=== PATIENT | male | born 1940 ===

== ENCOUNTER 2018-02-07 01:52 | Day surgery (SDC) | payer MEDICARE ==
[~2018-02-07] VITALS: Ht 177.8 cm; Wt 89.8 kg
[~2018-02-07 01:52] MED LIST: ASPI-1471 PO; ATOR10TA24 PO; CHOL200038 PO; CLOP75TA PO; MULT-820 PO; PLAN450T3 PO; UBID100C48 PO
[2018-02-07] MEDS ORDERED: PROPOFOL EMUL(*) 10MG/ML 20 ML 20 ML ONE (10:45)
[2018-02-07] MEDS: LIDOCAINE/SOD BICARB 8.4% SYR ID ONE ×2 (10:49→11:25)
[2018-02-07] MEDS ORDERED: NORMOSOL R SOLN(*) 1000 ML BAG 1,000 ML IV PRN (11:25)
[2018-02-07 11:39] VITALS: BP 122/72
[2018-02-07 12:33] VITALS: BP 88/53
[2018-02-07 12:45] VITALS: BP 95/62
[2018-02-07 13:10] VITALS: BP 100/67
[2018-02-07 13:26] VITALS: BP 100/79
[2018-02-07 13:28] VITALS: BP 120/79
== END 2018-02-07 14:00 | disposition home or self-care (01) ==
LOC: OR 01:52
PROVIDERS: ATTEND Family Medicine
DX: Z12.11 Encounter for screening for malignant neoplasm of colon (principal)
CPT/HCPCS: 00812; G0121; J2704

== ENCOUNTER → 2018-02-23 | Outpatient (CLI) | payer MEDICARE | LOC: RESP 20:52 | PROVIDERS: ATTEND Family Medicine | DX: Z02.9 Encounter for administrative examinations, unspecified (principal) ==

== ENCOUNTER 2018-07-22 05:35 | Emergency (ER) | payer MEDICARE ==
--- NOTE | 2018-07-22 05:49 | ER Report ---
History and Physical Time Seen By MD: 05:49 Hx. of Stated Complaint: patients states that the patient got put to go to the bathroom and then passed out; states that she found him and had to wake him up and that he was a ashy castillo color; patient states that he still feels light headed, feverish. ([facility]) HPI/ROS CHIEF COMPLAINT: Syncope HISTORY OF PRESENT ILLNESS: This is a 77-year-old male. He passed out this morning at home. He remembers getting up to get a drink and going to the bathroom and the next thing he remembers is his trying to wake him up. His said that she heard a crash and went to check on her . He was staring straight ahead and not initially responsive. After a few moments he started responding. No seizure-like activity noted. He tried to get up but was dizzy and ended up not able to get up. Eventually he was able to get up and the came to the hospital. He has been dizzy for the last few days. They just returned from staying in [place] for several months and her back in [facility]. He denies any pain at this time. He specifically denies any chest pain or palpitations. He is not short of breath. He has not been ill recently and denies any fevers, sore throat, runny nose, cough. He denies any headache or vision changes right now. He still is dizzy feeling lightheaded. This does worsen with position change such as sitting up or standing. He denies any abdominal pain or nausea or vomiting. He has been eating and drinking normally the last few days. No changes in medications and he doesn't take any blood pressure medicines. His blood pressure and pulse always run a little bit low but he notes that the blood pressure and pulse now her little lower than what he usually runs. He always has a little bit of low back pain and that is unchanged. He denies any neck pain or back pain at this time and no pain in the extremities. He does have a little bit of a muscle cramp in the lateral calf on the right side. He gets these a lot and this is not unusual for him. Denies any difficulties with urination. He always suffers from a little constipation as he is now but not different than normal for him. He has had a history of a stroke in the past with some weakness in the left arm that lasted for about a day and then went away. No residual symptoms of this. He has no weakness at this time. He has not had any trouble swallowing or trouble with speech. He has no weakness in the face arms or legs and no sensory disturbances at this time. REVIEW OF SYSTEMS: As above. (JAREN ALCALA MD) Allergies: Coded Allergies: No Known Drug Allergies (Unverified , 02/01/18) Home Meds Reported Medications Atorvastatin Calcium (LIPITOR) 10 Mg Tablet, 1 TAB PO QDAY, TAB 02/01/18 Clopidogrel Bisulfate (CLOPIDOGREL) 75 Mg Tablet, 1 TAB PO QDAY, TAB 02/01/18 Ubidecarenone (COQ-10) 100 Mg Capsule, 100 MG PO, CAPSULE 02/01/18 Cholecalciferol (Vitamin D3) (VITAMIN D3) 2,000 Unit Tablet, 2000 UNIT PO 02/01/18 Plant Stanol Yolanda (CHOLEST OFF) 450 Mg Tablet, 450 MG PO 02/01/18 Aspirin (Aspir 81) 81 Mg Tablet.dr, 81 MG PO 1 for 1 Day 09/11/06 Reviewed Nurses Notes: Yes (JAREN ALCALA MD) Hx Smoking: No Smoking Status: Never Smoker Exposure to Second Hand Smoke?: Yes (MOM WAS A SMOKER) Hx Substance Use Disorder: No Hx Alcohol Use: Yes (JAREN ALCALA MD) Constitutional Vital Sign - Last 24 Hours 07/22/18 07/22/18 07/22/18 07/22/18 05:39 05:40 06:00 06:05 Temp 97.3 Pulse 50 47 Resp 17 21 B/P (MAP) 100/63 (75) 100/63 98/71 (80) Pulse Ox 90 93 O2 Delivery Room Air Nasal Cannula O2 Flow Rate 2 07/22/18 07/22/18 07/22/18 07/22/18 06:05 06:10 06:30 06:57 Pulse 48 55 Resp 12 13 B/P (MAP) 95/62 (73) Pulse Ox 94 99 O2 Flow Rate 2.0 07/22/18 07/22/18 07/22/18 07/22/18 07:02 07:03 07:05 07:09 Pulse 49 54 Resp 24 16 B/P (MAP) 112/70 (84) 115/79 (91) 111/66 (81) 112/70 (84) 115/79 (91) Pulse Ox 97 95 O2 Delivery Nasal Cannula O2 Flow Rate 2 07/22/18 07/22/18 07/22/18 07/22/18 07:30 07:32 08:00 08:02 Pulse 48 50 Resp 17 15 B/P (MAP) 117/71 (86) 118/73 (88) Pulse Ox 97 96 (JHON JAIN MD) Physical Exam General Appearance: The patient is alert. No acute distress. Non-toxic in appearance. Eyes: Pupils are equal, round. Reactive to light. No pallor, injection or icterus. Extraocular movements are intact. No nystagmus. ENT: Mucous membranes are moist. Normal oral mucosa. Posterior oropharynx is normal. Neck: Supple and non tender. No lymphadenopathy. Respiratory: Lungs are clear to auscultation. There are no retractions or accessory muscle use. Cardiovascular: Bradycardia but with a regular rhythm. No murmurs, gallops or rubs. Normal capillary refill. Trace edema in the ankles bilaterally. Gastrointestinal: Abdomen is soft and non tender. Nondistended. Normal active bowel sounds. No costovertebral angle tenderness with percussion. Neurological: Alert and oriented x3. Cranial nerves show I exam as noted above. Tongue is midline, symmetric palate elevation. No facial droop. Normal facial sensation. He has normal sensation and muscle strength throughout upper and lower extremities. He does get a little dizzy when he sits up for listening to his breathing. Skin: Warm and dry. No rashes. Musculoskeletal: Extremities are nontender other than the area with the muscle cramping in the right lower calf. Full range of motion. No tenderness in palpation of the cervical, thoracic and lumbar spine. DIFFERENTIAL DIAGNOSIS: After history and physical exam, differential diagnosis was considered for syncope including but not limited to vasovagal syncope, cardiogenic syncope, neurologic problems such as seizure or stroke, arrhythmia, metabolic or electrolyte abnormality, dehydration, and blood loss. ([facility]) Medical Decision Making Data Points Result Diagram: 07/22/18 0545 07/22/18 0545 Laboratory Hematology Test 07/22/18 05:45 07/22/18 06:26 07/22/18 09:14 Red Blood Count 4.70 M/uL (4.00-5.60) Mean Corpuscular Volume 92.6 fL (80.0-96.0) Mean Corpuscular Hemoglobin 31.6 pg (26.0-33.0) Mean Corpuscular Hemoglobin Concent 34.1 g/dL (32.0-36.0) Red Cell Distribution Width 13.3 % (11.5-14.5) Mean Platelet Volume 8.5 fL (7.2-11.1) Neutrophils (%) (Auto) 57.8 % (39.4-72.5) Lymphocytes (%) (Auto) 30.6 % (17.6-49.6) Monocytes (%) (Auto) 8.6 % (4.1-12.4) Eosinophils (%) (Auto) 2.4 % (0.4-6.7) Basophils (%) (Auto) 0.6 % (0.3-1.4) Nucleated RBC Relative Count (auto) 0.1 /100WBC Neutrophils # (Auto) 4.1 K/uL (2.0-7.4) Lymphocytes # (Auto) 2.1 K/uL (1.3-3.6) Monocytes # (Auto) 0.6 K/uL (0.3-1.0) Eosinophils # (Auto) 0.2 K/uL (0.0-0.5) Basophils # (Auto) 0.0 K/uL (0.0-0.1) Nucleated RBC Absolute Count (auto) 0.00 K/uL Sodium Level 138 mmol/L (137-145) Potassium Level 4.0 mmol/L (3.5-5.0) Chloride Level 108 mmol/L (98-107) Carbon Dioxide Level 23 mmol/L (22-30) Blood Urea Nitrogen 24 mg/dl (9-21) Creatinine 1.10 mg/dl (0.66-1.25) Glomerular Filtration Rate Calc > 60.0 Random Glucose 131 mg/dl (75-110) Calcium Level 8.7 mg/dl (8.4-10.2) Magnesium Level 2.1 mg/dl (1.7-2.2) Total Bilirubin 0.9 mg/dl (0.2-1.3) Aspartate Amino Transf (AST/SGOT) 36 U/L (0-35) Alanine Aminotransferase (ALT/SGPT) 49 U/L (0-56) Alkaline Phosphatase 67 U/L (0-126) Total Protein 6.7 g/dl (6.3-8.2) Albumin 3.8 g/dl (3.5-5.0) Urine Color Yellow Urine Clarity Slightly-cloudy Urine pH 5.0 pH (4.8-9.5) Urine Specific [place] 1.024 Urine Protein 30 mg/dL (NEGATIVE) Urine Glucose (UA) Negative mg/dL (NEGATIVE) Urine Ketones Negative mg/dL (NEGATIVE) Urine Blood Negative (NEGATIVE) Urine Nitrite Negative (NEGATIVE) Urine Bilirubin Negative (NEGATIVE) Urine Urobilinogen 2.0 mg/dL (0.2-1.9) Urine Leukocyte Esterase Negative (NEGATIVE) Urine RBC None /HPF (0-2/HPF) Urine WBC 2 /HPF (0-5/HPF) Urine Squamous Epithelial Cells None /LPF (</=FEW) Urine Bacteria Negative /HPF (NONE-FEW) Urine Hyaline Casts Many /LPF (NONE-FEW) Urine Mucus Few /HPF (NONE-FEW) Troponin I < 0.012 ng/ml Chemistry Test 07/22/18 05:45 07/22/18 06:26 07/22/18 09:14 White Blood Count 7.0 k/uL (4.5-11.0) Red Blood Count 4.70 M/uL (4.00-5.60) Hemoglobin 14.8 g/dL (14.0-18.0) Hematocrit 43.5 % (42.0-52.0) Mean Corpuscular Volume 92.6 fL (80.0-96.0) Mean Corpuscular Hemoglobin 31.6 pg (26.0-33.0) Mean Corpuscular Hemoglobin Concent 34.1 g/dL (32.0-36.0) Red Cell Distribution Width 13.3 % (11.5-14.5) Platelet Count 201 K/uL (150-450) Mean Platelet Volume 8.5 fL (7.2-11.1) Neutrophils (%) (Auto) 57.8 % (39.4-72.5) Lymphocytes (%) (Auto) 30.6 % (17.6-49.6) Monocytes (%) (Auto) 8.6 % (4.1-12.4) Eosinophils (%) (Auto) 2.4 % (0.4-6.7) Basophils (%) (Auto) 0.6 % (0.3-1.4) Nucleated RBC Relative Count (auto) 0.1 /100WBC Neutrophils # (Auto) 4.1 K/uL (2.0-7.4) Lymphocytes # (Auto) 2.1 K/uL (1.3-3.6) Monocytes # (Auto) 0.6 K/uL (0.3-1.0) Eosinophils # (Auto) 0.2 K/uL (0.0-0.5) Basophils # (Auto) 0.0 K/uL (0.0-0.1) Nucleated RBC Absolute Count (auto) 0.00 K/uL Glomerular Filtration Rate Calc > 60.0 Calcium Level 8.7 mg/dl (8.4-10.2) Magnesium Level 2.1 mg/dl (1.7-2.2) Total Bilirubin 0.9 mg/dl (0.2-1.3) Aspartate Amino Transf (AST/SGOT) 36 U/L (0-35) Alanine Aminotransferase (ALT/SGPT) 49 U/L (0-56) Alkaline Phosphatase 67 U/L (0-126) Total Protein 6.7 g/dl (6.3-8.2) Albumin 3.8 g/dl (3.5-5.0) Urine Color Yellow Urine Clarity Slightly-cloudy Urine pH 5.0 pH (4.8-9.5) Urine Specific [place]ard 1.024 Urine Protein 30 mg/dL (NEGATIVE) Urine Glucose (UA) Negative mg/dL (NEGATIVE) Urine Ketones Negative mg/dL (NEGATIVE) Urine Blood Negative (NEGATIVE) Urine Nitrite Negative (NEGATIVE) Urine Bilirubin Negative (NEGATIVE) Urine Urobilinogen 2.0 mg/dL (0.2-1.9) Urine Leukocyte Esterase Negative (NEGATIVE) Urine RBC None /HPF (0-2/HPF) Urine WBC 2 /HPF (0-5/HPF) Urine Squamous Epithelial Cells None /LPF (</=FEW) Urine Bacteria Negative /HPF (NONE-FEW) Urine Hyaline Casts Many /LPF (NONE-FEW) Urine Mucus Few /HPF (NONE-FEW) Troponin I < 0.012 ng/ml Urinalysis Test 07/22/18 06:26 Urine Color Yellow Urine Clarity Slightly-cloudy Urine pH 5.0 pH (4.8-9.5) Urine Specific [place] 1.024 Urine Protein 30 mg/dL (NEGATIVE) Urine Glucose (UA) Negative mg/dL (NEGATIVE) Urine Ketones Negative mg/dL (NEGATIVE) Urine Blood Negative (NEGATIVE) Urine Nitrite Negative (NEGATIVE) Urine Bilirubin Negative (NEGATIVE) Urine Urobilinogen 2.0 mg/dL (0.2-1.9) Urine Leukocyte Esterase Negative (NEGATIVE) Urine RBC None /HPF (0-2/HPF) Urine WBC 2 /HPF (0-5/HPF) Urine Squamous Epithelial Cells None /LPF (</=FEW) Urine Bacteria Negative /HPF (NONE-FEW) Urine Hyaline Casts Many /LPF (NONE-FEW) Urine Mucus Few /HPF (NONE-FEW) (JHON JAIN MD) EKG/Imaging EKG Interpretation 12 lead EKG: Rhythm: Sinus bradycardia with first-degree AV block, rate 48 [place]: Left axis deviation QRS: Narrow QRS complex, normal in appearance ST segments: No ST elevation, nonspecific flattening of the T waves (JAREN ALCALA MD) Imaging FACILITY: [facility] [place] PATIENT NAME: Nick Grigsby : 1940 MR: [id number] V: [id number] EXAM DATE: ORDERING PHYSICIAN: JAREN ALCALA TECHNOLOGIST: Location: [facility] [place] Patient: Nick Grigsby : 1940 Visit/Account:[id number] Date of Sevice: 07/22/[address] scan without contrast HISTORY: Syncope COMPARISONS: None TECHNIQUE: Non-contrast head CT was performed with sagittal and coronal reformations. One of the following dose optimization techniques was utilized in the performance of this exam: automated exposure control; adjustment of the mA and/or kV according to patient size; or use of iterative reconstruction technique. Specific details can be referenced in the facility's radiology CT exam operational policy. FINDINGS: There is no intracranial hemorrhage, hydrocephalus or midline shift. The basal cisterns, singh-white differentiation, and convexity sulci are maintained. Cataract postsurgical change noted. Minimal patchy white matter hypoattenuation. Trace left mastoid fluid. Mild left maxillary sinus mucosal thickening. Small right maxillary sinus mucous retention cyst. No acute osseous abnormality. IMPRESSION: No acute intracranial abnormality. Minimal chronic small vessel ischemic change. Report Dictated By: Mike Jefferson MD at 07/22/2018 6:47 AM Report E-Signed By: Mike Jefferson MD at 07/22/2018 6:53 AM WSN:[id number] (JHON JAIN MD) ED Course/Re-evaluation Clinical Indication for ER IV: IV Access (JAREN ALCALA MD) ED Course 07/22/2018 7:06:53 am accepted care of patient at this time. Awaiting results of CT of the head; we will repeat troponin at the 4 hour window. Patient with symptomatic bradycardia consider discussion with cardiology prior to disposition. 07/22/2018 9:53:20 am workup and troponin are completely negative. Patient responded extremely well to IV fluids with normal heart rate now and blood pressure. I'll likely patient's lightheadedness secondary to dehydration that was brought on by caffeine consumption as well as going from lower altitude to high altitude. Patient will follow up with primary care provider. Decision to Disposition Date: Jul 22, 2018 Decision to Disposition Time: 09:53 (JHON JAIN MD) Depart Departure Latest Vital Signs Vital Signs Date Time Temp Pulse Resp B/P (MAP) Pulse Ox O2 Delivery O2 Flow Rate FiO2 07/22/18 08:02 50 15 96 07/22/18 08:00 118/73 (88) 07/22/18 07:09 Nasal Cannula 2 07/22/18 05:40 97.3 (JHON JAIN MD) Impression: Primary Impression: Lightheadedness Additional Impression: Dehydration Condition: Improved Disposition: HOME OR SELF-CARE Referrals: JULIANA LOGAN MD (PCP) 2 Weeks Routine health maintenance and follow-up with lightheadedness Patient Instructions: Dehydration (ED), Lightheadedness (ED) Problem Qualifiers JAREN ALCALA MD Jul 22, 2018 05:49 JHON JAIN MD Jul 22, 2018 07:07
[2018-07-22] MEDS ORDERED: NS(*) 0.9% 1000 ML BAG 1,000 ML IV ONE ×2 (06:09→07:25)
[2018-07-22 06:16] LABS: PLATELET COUNT, AUTOMATED 201 K/uL (150-450)
--- NOTE | 2018-07-22 06:25 | EKG ---
[place] [facility] [place] NAME: LUCERO GAINES : [id number] MR: [id number]: [id number] EXAM DATE: ORDERING PHYSICIAN: JAREN ALCALA TECHNOLOGIST: ROXANN Test Reason : SYNCOPE Blood Pressure : / mmHG Vent. Rate : 048 BPM Atrial Rate : 048 BPM P-R Int : 222 ms QRS Dur : 098 ms QT Int : 506 ms P-R-T Axes : 037 -34 015 degrees QTc Int : 452 ms Marked sinus bradycardia with 1st degree AV block Left axis deviation Abnormal ECG No previous ECGs available Confirmed by Mason Breaux ([id number]) on 07/22/2018 7:35:18 AM Referred By: Confirmed By:Mason Pineda
--- NOTE | 2018-07-22 06:56 | RADIOLOGY IMAGING REPORT ---
FACILITY: [facility] [place] PATIENT NAME: Nick Grigsby : 1940 MR: [id number] V: [id number] EXAM DATE: ORDERING PHYSICIAN: JAREN ALCALA TECHNOLOGIST: Location: [facility] Patient: Nick Grigsby : 1940 Visit/Account:[id number] Date of Sevice: 07/22/[address] scan without contrast HISTORY: Syncope COMPARISONS: None TECHNIQUE: Non-contrast head CT was performed with sagittal and coronal reformations. One of the following dose optimization techniques was utilized in the performance of this exam: autom ated exposure control; adjustment of the mA and/or kV according to patient size; or use of iterative reconstruction technique. Specific details can be referenced in the facility's radiology CT exam ope rational policy. FINDINGS: There is no intracranial hemorrhage, hydrocephalus or midline shift. The basal cisterns, singh-white differentiation, and convexity sulci are maintained. Cataract postsurgical change noted. Minimal patc hy white matter hypoattenuation. Trace left mastoid fluid. Mild left maxillary sinus mucosal thickening. Small right maxillary sinus m ucous retention cyst. No acute osseous abnormality. IMPRESSION: No acute intracranial abnormality. Minimal chronic small vessel ischemic change. Report Dictated By: Mike Jefferson MD at 07/22/2018 6:47 AM Report E-Signed By: Mike Jefferson MD at 07/22/2018 6:53 AM WSN:[id number]
--- NOTE | 2018-07-22 06:57 | RADIOLOGY IMAGING REPORT ---
FACILITY: [facility] PATIENT NAME: Nick Grigsby : 1940 MR: [id number] V: [id number] EXAM DATE: ORDERING PHYSICIAN: JAREN ALCALA TECHNOLOGIST: Location: [facility] Patient: Nick Grigsby : 1940 Visit/Account:[id number] Date of Sevice: 07/22/2018 EXAMINATION: Chest radiograph HISTORY: Syncope, dizziness COMPARISON: None. FINDINGS: Frontal view obtained. Lines/tubes: None. Cardiomediastinal silhouette: Normal. Lungs/pleura: Normal. Bony structures/chest wall: No significant abnormality. IMPRESSION: Normal chest radiograph. Report Dictated By: Mike Jefferson MD at 07/22/2018 6:53 AM Report E-Signed By: Mike Jefferson MD at 07/22/2018 6:54 AM WSN:[id number]
[2018-07-22 10:00] VITALS: BP 117/73
== END 2018-07-22 10:04 | disposition home or self-care (01) ==
LOC: ER 05:37
DX: R42 Dizziness and giddiness (principal); E86.0 Dehydration
CPT/HCPCS: 36415; 70450; 71045; 81001; 83735; 84484; 85025; 93005; 96360; 96361; 99284; J7030; 82040; 82247; 82310; 82374; 82435; 82565; 82947; 84075; 84132; 84155; 84295; 84450; 84460; 84520

== ENCOUNTER → 2018-07-29 | Outpatient (CLI) | payer MEDICARE ==
--- NOTE | 2018-07-31 18:37 | RT HOLTER TEST ---
FACILITY: [facility] PATIENT NAME: LUCERO GAINES : [id number] MR: [id number] V: [id number] EXAM DATE: ORDERING PHYSICIAN: JULIANA LOGAN TECHNOLOGIST: Sue Braswell-up date: 2018-07-29 15:46:00 Duration: 47:59:00 Test Indications: SYNCOPE Medications: None listed [id number] QRS complexes 1592 Ventricular ectopics which represent <1 % of total QRS comp. 106 Supraventricular ectopics which represent <1 % of total QRS comp. * Paced QRS complexes which represent % of total QRS comp. VENTRICULAR ECTOPY 1568 Isolated 957 Bigeminal Cycles 9 Couplets 2 Runs 6 Beats in Runs 3 Beats LONGEST at 69 BPM at 20:42:06 2018-07-30 3 Beats FASTEST at 78 BPM at 20:48:53 2018-07-30 SUPRAVENTRICULAR ECTOPY 61 Isolated 13 Couplets 6 Runs 19 Beats in Runs 4 Beats LONGEST at 88 BPM at 04:18:03 2018-07-31 3 Beats FASTEST at 110 BPM at 22:50:24 2018-07-30 HEART RATES 41 MIN at 03:24:26 2018-07-31 59 AVG 134 MAX at 09:01:03 2018-07-30 LONGEST RR 1.976 secs at 05:46:31 2018-07-30 S-T LEVELS Channel 1 -12.800 mm MIN at 15:46:00 2018-07-29 -12.800 mm MAX at 15:46:00 2018-07-29 Channel 2 -12.800 mm MIN at 15:46:00 2018-07-29 -12.800 mm MAX at 15:46:00 2018-07-29 Channel 3 -12.800 mm MIN at 15:46:00 2018-07-29 -12.800 mm MAX at 15:46:00 2018-07-29 The patient was predominantly in a sinus rhythm. He had ventricular ectopy (VE) during some of the symptom triggered events. The patient had many more asymptomatic VE events including two 3 beat runs and bigeminy runs. The patient had rare supra ventricular ectopy (SVE). Confirmed by LUIS MANUEL WHITE ([id number]) on 07/31/2018 6:36:56 PM Referred By: Overread By: LUIS MANUEL WHITE
== END ==
LOC: RESP 15:28
PROVIDERS: ATTEND Family Medicine
DX: I47.1 Supraventricular tachycardia (principal)
CPT/HCPCS: 93225; 93226